=== PATIENT | female | born 1995 | race African-American/Black ===

== ENCOUNTER 2025-09-13 12:24 | Inpatient (IN) | payer MEDICAID, SELFPAY ==
[2025-09-13 12:58] VITALS: BP 112/68; PULSE 107; RESP 20; TEMP 37.3; O2SAT 98; BMI 37.9
--- NOTE | 2025-09-13 13:14 | XR_ITS ---
EXAMINATION: US OB >= 14 weeks Fetus, US OB <= 14 weeks fetus ORDERING PROVIDER: YOHAN Farfan HISTORY: pelvic pain TECHNIQUE: Multiplanar still ultrasonography of the pelvis was performed using grayscale imaging, supplemented by color and spectral Doppler as needed. Images were performed transabdominally. COMPARISON: None. FINDINGS: Single live intrauterine , cephalic, spine to maternal right. 162 bpm. Placenta posterior. Limited anatomy evaluation for dating. Please note, this is not a full anatomy scan and does not preclude the 20-week anatomy scan. Clinical age 15 weeks 5 days Sonographic age 16 weeks 2 days Estimated weight: 143.1 g +/-21 g Right ovary 2.3 x 1.3 x 1.8 cm, with vascular flow seen. Left ovary not visualized. Lobular uterus with multiple heterogeneous rounded lesions measuring up to 6.2 cm. This includes a posterior subserosal pedunculated lesion. Amniotic fluid index 10.3 cm. No free fluid in the cul-de-sac. IMPRESSION: 1. Single live intrauterine with concordant sonographic and clinical dates. 2. Multifibroid uterus.
--- NOTE | 2025-09-13 13:15 | PD.EDRME ---
Rapid Medical Screening Exam [facility] Arrival date/time: 09/13/25 12:24 30-year-old female with no known medical history presents to the emergency room with a chief complaint of lower lumbar back pain and lower bilateral abdominal pain x 1 week. Patient is currently 16 weeks . I have greeted and performed a focused initial assessment of this patient. A comprehensive ED assessment and evaluation of the patient, analysis of all test results, and completion of the medical decision making process will be conducted by additional ED providers. Chief Complaint: Abdominal Pain Time Seen by Provider: 09/13/25 12:59 Vital signs: Vital Signs Temperature 99.2 F 09/13/25 12:58 Pulse Rate 107 H 09/13/25 12:58 Respiratory Rate 20 09/13/25 12:58 Blood Pressure 112/68 09/13/25 12:58 Pulse Oximetry (%) 98 09/13/25 12:58 Oxygen Delivery Method Room Air 09/13/25 12:58 Vital signs reviewed by provider: Yes Exam: Bilateral lower abdominal tenderness Lower lumbar back pain Clinical Impression: Threatened /UTI/ectopic /back
[2025-09-13 13:52] LABS: Alanine Aminotransferase 23 U/L (10-49); Albumin, Serum 4.5 gm/dL (3.5-5.0); Albumin/Globulin Ratio 1.3 (1.2-2.2); Alkaline Phosphatase 69 U/L (46-116); Anion Gap 10 (7-16); Aspartate Amino Transferase 20 U/L (0-34); BUN/Creatinine Ratio 8 Ratio (12-20); Bilirubin,Total 0.3 mg/dL (0.3-1.2); Blood Urea Nitrogen < 5 mg/dL (9-23); Calcium 9.7 mg/dL (8.3-10.6); Calcium (Corrected) 9.7 mg/dL (8.5-10.1); Carbon Dioxide 23.2 mMol/L (20.0-31.0); Chloride 103 mMol/L (98-107); Creatinine (Component) 0.6 mg/dL (0.6-1.3); Estimated Creatinine Clearance 175.2 mL/min (>60); Globulin 3.5 gm/dL (2.3-3.5); Glucose 94 mg/dL (74-106); Osmolality,Calculated 269 (275-295); Potassium 4.4 mMol/L (3.4-5.1); Sodium 136 mMol/L (136-145); Total Protein 8.0 gm/dL (5.7-8.2); eGFR > 60 See Note
[2025-09-13] MEDS: ACETAMINOPHEN 500 MG TABLET 1000 MG PO (14:50)
[2025-09-13 14:55] LABS: Collection Type, Urine Clean Catch
[2025-09-13 15:07] LABS: Bacteria,Urine Rare; Bilirubin,Urine Negative (Negative); Blood,Urine Negative (Negative); Color,Urine Yellow (Lt Yel-Yel); Glucose, Urine Negative (Negative); Ketones,Urine 3+ (Negative); Leukocyte Esterase,Urine Positive (Negative); Nitrite,Urine Negative (Negative); PH,Urine 6.0 (5.0-7.0); Protein,Urine Negative (Neg - Trace); RBC,Urine 2 /hpf (0-3); Specific Gravity,Urine 1.019 (1.001-1.035); Squamous Epithelial Cell,Urine 8 /hpf (0-5); Urobilinogen,Urine Negative mg/dL (0.0-1.0); WBC,Urine 7 /hpf (0-5)
[2025-09-13 15:10] LABS: Clarity,Urine Hazy (Clear/Hazy)
[2025-09-13 15:16] LABS: Basophils # (Auto) 0.0 Thou/mm3 (0.0-0.2); Basophils % (Auto) 0 % (0-2.5); Eosinophils # (Auto) 0.1 Thou/mm3 (0.0-0.5); Eosinophils % (Auto) 0 % (0-10); Hematocrit 38.3 % (36.0-46.0); Hemoglobin 13.1 g/dL (12.0-16.0); Immature Granulocytes Auto 0.09 Thou/mm3 (0.00-0.00); Lymphocytes # (Auto) 2.4 Thou/mm3 (1.0-4.8); Lymphocytes % (Auto) 14 % (10-50); Mean Corpuscular HGB Conc 34.2 g/dl (31.0-37.0); Mean Corpuscular Hemoglobin 29.9 pg (25.0-35.0); Mean Corpuscular Volume 87 fL (80-100); Monocytes # (Auto) 1.1 Thou/mm3 (0.0-0.8); Monocytes % (Auto) 7 % (0-12); Neutrophils # (Auto) 13.8 Thou/mm3 (1.8-7.7); Neutrophils % (Auto) 79 % (37-80); Nucleated Red Blood Cell # 0.00 Thou/mm3 (0.00-0.00); Nucleated Red Blood Cell % 0 /100 WBC (0); Platelet Count 277 Thou/mm3 (140-440); RDW Standard Deviation 44.2 fL (36.4-46.3); Red Blood Count 4.38 Miln/mm3 (4.00-5.20); White Blood Count 17.6 Thou/mm3 (3.6-11.0)
--- NOTE | 2025-09-13 16:25 | PD.EDABDPN ---
ED Abdominal Pain RME/HPI General Chief Complaint: Abdominal Pain Stated complaint: LOWER ABD/BACK PAIN Time seen by provider: 09/13/25 12:59 Arrival date/time: 09/13/25 12:24 RME / HPI RME / HPI narrative: 09/13/25 12:24 30-year-old female with no known medical history presents to the emergency room with a chief complaint of lower lumbar back pain and lower bilateral abdominal pain x 1 week. Patient is currently 16 weeks . I have greeted and performed a focused initial assessment of this patient. A comprehensive ED assessment and evaluation of the patient, analysis of all test results, and completion of the medical decision making process will be conducted by additional ED providers. Exam: Bilateral lower abdominal tenderness Lower lumbar back pain Impression: Threatened /UTI/ectopic /back Related Data Allergies Allergy/AdvReac Type Severity Reaction Status Date / Time No Known Allergies Allergy Verified 09/13/25 12:28 Course Orders Category Date Time Status US OB >= 14 weeks Fetus Stat Exams 09/13/25 13:14 Completed ABO/RH Type Stat Lab 09/13/25 13:20 Completed Beta HCG,Quantitative Stat Lab 09/13/25 13:20 Results CBC Stat Lab 09/13/25 13:20 Completed CMP [Comprehensive Metabolic Panel] Stat Lab 09/13/25 13:20 Results Lipase Stat Lab 09/13/25 13:20 Results UA [Urinalysis] Stat Lab 09/13/25 14:41 Completed Acetaminophen Tab [Tylenol ES Tab] Med 09/13/25 13:16 Discontinued 1,000 mg PO X1 ONE Vital Signs Vital signs: Vital Signs Temperature 99.2 F 09/13/25 12:58 Pulse Rate 107 H 09/13/25 12:58 Respiratory Rate 20 09/13/25 12:58 Blood Pressure 112/68 09/13/25 12:58 Pulse Oximetry (%) 98 09/13/25 12:58 Oxygen Delivery Method Room Air 09/13/25 12:58 Abdominal Pain MDM MDM Narrative MDM Narrative:: Labs with leukocytosis 17.6 no left shift Medications / Prescriptions Medication administrations:: Medication Administration History Discontinued Medications Acetaminophen (Acetaminophen 500 Mg Tablet) 1,000 mg PO X1 ONE Stop: 09/13/25 13:17 Last Admin: 09/13/25 14:50 Dose: 1,000 mg Documented By: TRACY Discharge Plan Prescriptions/Referrals Referrals: Brian Negrete MD [Primary Care Provider, Family Practice] - In 1 week Patient/Caregiver Discharge Instructions Print Language: Setswana
--- NOTE | 2025-09-13 16:26 | EDNOTE_ITS ---
ED Abdominal Pain RME/HPI General Chief Complaint: Abdominal Pain Stated complaint: LOWER ABD/BACK PAIN Time seen by provider: 09/13/25 12:59 Arrival date/time: 09/13/25 12:24 Limitations: no limitations RME / HPI RME / HPI narrative: 09/13/25 12:24 30-year-old female with no known medical history presents to the emergency room with a chief complaint of lower lumbar back pain and lower bilateral abdominal pain x 1 week. Patient is currently 16 weeks . I have greeted and performed a focused initial assessment of this patient. A comprehensive ED assessment and evaluation of the patient, analysis of all test results, and completion of the medical decision making process will be conducted by additional ED providers. DR. RAYMON MAYEN ED EVALUATION 30 year old female who is approximately 16 weeks gestational age, , presents to the ED for evaluation of left flank pain that radiates around to the left lower abdomen beginning 5 days ago. Pain described as colicky in sensation, rating as severe. Has noted pain to be worse during the night and while laying on the left side. Reportedly has also been evaluated at [facility] due to pain and urinary symptoms when the pain first began and diagnosed with a UTI. States she was given a dose of antibiotics while in the emergency room and discharged home with Cephalexin. States she has taken 3 days of antibiotics with 5-6 days left and no change in symptoms. Denies any contraction type pain, vomiting, fevers, chills, or vaginal bleeding. Exam: Bilateral lower abdominal tenderness Lower lumbar back pain Impression: Threatened /UTI/ectopic /back Related Data Previous Rx's ?Medication ?Instructions ?Recorded amoxicillin 875 mg-potassium 1 tab PO BID 7 days #14 t abs 09/15/25 clavulanate 125 mg tablet Allergies Allergy/AdvReac Type Severity Reaction Status Date / Time No Known Allergies Allergy Verified 09/13/25 12:28 Review of Systems Review of Systems Systems Reviewed: All systems reviewed, normal except as documented Past Medical History Social History SMOKING STATUS: Never smoker ED Exam General Limitations: Present no limitations General appearance: Present alert and in no apparent distress Head Head exam: Present atraumatic Eye Eye exam: Present normal appearance, PERRL and EOMI ENT ENT exam: Present normal exam, normal oropharynx and mucous membranes moist Neck Neck exam: Present normal inspection, full ROM and trachea midline Chest Chest inspection: Present normal inspection and symmetric chest wall rise Respiratory Respiratory exam: Present normal lung sounds bilaterally Cardiovascular Cardiovascular exam: Present regular rate, normal rhythm and normal heart sounds Abdominal Exam Abdominal exam: Present soft and normal bowel sounds; Absent tenderness, guarding or rebound Extremities Exam Extremities exam: Present normal inspection and full ROM Back Exam Back exam: Present full ROM and other (Left flank tenderness to palpation ) Neurological Exam Neurological exam: Present alert, oriented X3 and CN II-XII intact Psychiatric Psychiatric exam: Present normal affect and normal mood Skin Skin exam: Present warm, dry, intact and normal color Course Quality Measures none Orders Category Date Time Status Patient Condition Routine Admission 09/13/25 17:16 Ordered Activity as Tolerated Routine Care 09/13/25 17:16 Ordered heart tone auscultation Q4H Care 09/13/25 17:16 Completed Insert IV NOW Care 09/13/25 17:16 Completed Notify provider NEEDED Care 09/13/25 17:16 Completed Obtain weight daily Care 09/13/25 17:16 Completed Sequential Compression Device QSHIFT Care 09/13/25 17:16 Completed Diet Regular Diet 09/13/25 Dinner Active US OB >= 14 weeks Fetus Stat Exams 09/13/25 13:14 Completed US renal BI Stat Exams 09/13/25 17:05 Completed ABO/RH Type Stat Lab 09/13/25 13:20 Completed Beta HCG,Quantitative Stat Lab 09/13/25 13:20 Completed Blood Culture (Lab) Stat Lab 09/13/25 17:40 Completed CBC AM DRAW Lab 09/14/25 04:35 Completed CBC Stat Lab 09/13/25 13:20 Completed CMP [Comprehensive Metabolic Panel] Stat Lab 09/13/25 13:20 Completed Lipase Stat Lab 09/13/25 13:20 Completed UA [Urinalysis] Stat Lab 09/13/25 14:41 Completed Urine Culture Routine Lab 09/13/25 22:40 Completed Acetaminophen Tab [Tylenol ES Tab] Med 09/13/25 13:16 Discontinued 1,000 mg PO X1 ONE Acetaminophen Tab [Tylenol ES Tab] Med 09/13/25 17:16 Discontinued 500 mg PO Q6HR PRN Ampicillin/Sulbac Inj [Unasyn Inj] 3 gm Med 09/13/25 18:00 Discontinued Sodium Chloride 0.9% (Pop) [NS 0.9% mini bag] 100 ml IV Q6HR Dextrose 5%-0.45% Ns [D5-1/2Ns] 1,000 ml Med 09/13/25 17:30 Discontinued IV 100 mls/hr Ondansetron Inj [Zofran Inj] Med 09/13/25 17:16 Discontinued 4 mg IV Q6HR PRN Ringers Lactated 1000 ml [Lactated Ringers] 1,000 ml Med 09/13/25 17:10 Discontinued IV 999 mls/hr cefTRIAXone/D5w 1gm IV premix [Rocephin/D5w 1gm IV Med 09/13/25 17:05 Discontinued premix] 1 gm in 50 ml IV STAT fentaNYL INJ [Sublimaze Inj] Med 09/13/25 17:10 Discontinued 25 mcg IVP X1 ONE Code Status Routine Oth 09/13/25 17:16 Completed Vital Signs Vital signs: Vital Signs Temperature 99.2 F 09/13/25 12:58 Pulse Rate 107 H 09/13/25 12:58 Respiratory Rate 20 09/13/25 12:58 Blood Pressure 112/68 09/13/25 12:58 Pulse Oximetry (%) 98 09/13/25 12:58 Oxygen Delivery Method Room Air 09/13/25 12:58 Pulse ox is 98% on room air which is adequate. Abdominal Pain MDM MDM Narrative MDM Narrative:: Patient presents with flank pain while . Concern for pyelonephritis, UTI. Patient not septic. ordered labs, u/s and offered meds for symptom relief. Labs with evidence of leukocytosis 17.6, no left shift. No acute metabolic disturbance, patient has a beta-hCG of 57,000. I do not have a prior for comparison. Patient with urinalysis that is hazy, negative for nitrates, positive for leuk esterase, 2 RBCs, 7 WBCs rare bacteria. Urine likely does not appear infected secondary to the fact the patient has been on Keflex for at least 3 days. Patient continues to have significant left flank pain that been getting worse concern that patient has pyelonephritis. 1705p: I spoke with OBGYN Dr. Camacho. Discussed patients PMHx, HPI, ED course, exam findings, labs, and radiology results. He accepts the patient for admissi on. Updated patient, she is in agreement. Patient data External records reviewed:: [facility] previous records Clinical information provided by:: patient Social determinants that could affect healthcare access:: none Patient has the following chronic illnesses:: No chronic medical hx reported How is presenting disease/condition affected by chronic disease/condition?: uneffected by Evaluation data The following diagnostics were reviewed and interpreted by me:: lab results and radiology exam(s) Lab and/or radiology exams considered but not ordered:: None Interpretation Summary: Ordering Physician: David Ellsworth Date of Service: 09/13/25 Procedure(s): US OB >= 14 weeks Fetus Accession Number(s): [id number] cc: Sebastián Maher MD; David Ellsworth; Brian Negrete MD~ EXAMINATION: US OB >= 14 weeks Fetus, US OB <= 14 weeks fetus ORDERING PROVIDER: YOHAN Farfan HISTORY: pelvic pain TECHNIQUE: Multiplanar still ultrasonography of the pelvis was performed using grayscale imaging, supplemented by color and spectral Doppler as needed. Images were performed transabdominally. COMPARISON: None. FINDINGS: Single live intrauterine , cephalic, spine to maternal right. 162 bpm. Placenta posterior. Limited anatomy evaluation for dating. Please note, this is not a full anatomy scan and does not preclude the 20-week anatomy scan. Clinical age 15 weeks 5 days Sonographic age 16 weeks 2 days Estimated weight: 143.1 g +/-21 g Right ovary 2.3 x 1.3 x 1.8 cm, with vascular flow seen. Left ovary not visualized. Lobular uterus with multiple heterogeneous rounded lesions measuring up to 6.2 cm. This includes a posterior subserosal pedunculated lesion. Amniotic fluid index 10.3 cm. No free fluid in the cul-de-sac. IMPRESSION: 1. Single live intrauterine with concordant sonographic and clinical dates. 2. Multifibroid uterus. Dictated By: Sebastián Maher MD Signed By: <Electronically signed by Sebastián Maher MD in OV> 09/13/25 [id number] Medications / Prescriptions Medications or Prescriptions considered but not ordered:: None Medication administrations:: Medication Administration History Discontinued Medications Acetaminophen (Acetaminophen 500 Mg Tablet) 1,000 mg PO X1 ONE Stop: 09/13/25 13:17 Last Admin: 09/13/25 14:50 Dose: 1,000 mg Documented By: DB Acetaminophen (Acetaminophen 500 Mg Tablet) 500 mg PO Q6HR PRN PRN Reason: Fever >101.5 Stop: 10/13/25 17:15 Hydrocodone Bitart/Acetaminophen (Hydrocodone/Apap 5/325 Tablet) 1 tab PO Q4HR PRN PRN Reason: PAIN SCALE 4-6 (Moderate Stop: 09/18/25 22:13 Last Admin: 09/13/25 22:38 Dose: 1 tab Documented By: MANJU Hydrocodone Bitart/Acetaminophen (Hydrocodone/Apap 10/325 Tab) 1 tab PO Q6HR PRN PRN Reason: PAIN SCALE 7-10 (Severe Stop: 09/18/25 22:13 Last Admin: 09/15/25 12:26 Dose: 1 tab Documented By: Admin: 09/15/25 05:05 Dose: 1 tab Documented By: Admin: 09/14/25 22:31 Dose: 1 tab Documented By: Admin: 09/14/25 16:32 Dose: 1 tab Documented By: [email or web address] Admin: 09/14/25 09:49 Dose: 1 tab Documented By: [email or web address] Admin: 09/14/25 03:49 Dose: 1 tab Documented By: MANJU Fentanyl Citrate (Fentanyl Cit Inj 50 Mcg/Ml Amp 2ml) 25 mcg IVP X1 ONE Stop: 09/13/25 17:11 Last Admin: 09/13/25 17:21 Dose: 25 mcg Documented By: KYUNG Ceftriaxone Sodium/Dextrose (Rocephin/D5w 1gm Iv Premix) 1 gm in 50 mls @ 100 mls/hr IV STAT STA Stop: 09/13/25 17:34 Last Infusion: 09/13/25 17:52 Dose: Infused Documented By: Admin: 09/13/25 17:22 Dose: 100 mls/hr Documented By: KYUNG Lactated Ringer's (Lactated Ringers) 1,000 mls @ 999 mls/hr IV .Q1H1M ONE Stop: 09/13/25 18:10 Last Admin: 09/13/25 17:47 Dose: Not Given Documented By: KYUNG Non-Admin Reason: Cancelled by Provider Dextrose/Sodium Chloride (D5-1/2ns) 1,000 mls @ 100 mls/hr IV .Q10H KIMBER Stop: 10/13/25 17:29 Last Admin: 09/15/25 02:57 Dose: 100 mls/hr Documented By: Infusion: 09/15/25 00:35 Dose: Infused Documented By: Admin: 09/14/25 14:35 Dose: 100 mls/hr Documented By: [email or web address] Admin: 09/14/25 09:43 Dose: Not Given Documented By: ps Non-Admin Reason: previous shift Infusion: 09/14/25 03:49 Dose: Infused Documented By: ps Admin: 09/13/25 17:49 Dose: 100 mls/hr Documented By: KYUNG Ampicillin Sodium/Sulbactam (Sodium 3 gm/ Sodium Chloride) 100 mls @ 200 mls/hr IV Q6HR KIMBER Stop: 09/20/25 17:59 Last Admin: 09/15/25 12:26 Dose: 200 mls/hr Documented By: Infusion: 09/15/25 05:37 Dose: Infused Documented By: Admin: 09/15/25 05:07 Dose: 200 mls/hr Documented By: Infusion: 09/15/25 00:51 Dose: Infused Documented By: Admin: 09/15/25 00:21 Dose: 200 mls/hr Documented By: Infusion: 09/14/25 18:12 Dose: Infused Documented By: Admin: 09/14/25 17:42 Dose: 200 mls/hr Documented By: [email or web address] Infusion: 09/14/25 12:39 Dose: Infused Documented By: ps Admin: 09/14/25 12:09 Dose: 200 mls/hr Documented By: ps Infusion: 09/14/25 06:51 Dose: Infused Documented By: ps Admin: 09/14/25 06:21 Dose: 200 mls/hr Documented By: Infusion: 09/14/25 01:05 Dose: Infused Documented By: Admin: 09/14/25 00:35 Dose: 200 mls/hr Documented By: Infusion: 09/13/25 20:42 Dose: Infused Documented By: Admin: 09/13/25 19:20 Dose: 200 mls/hr Documented By: DIAZ Ondansetron HCl (Ondansetron Inj 2 Mg/Ml Inj 2 Ml) 4 mg IV Q6HR PRN PRN Reason: NAUSEA OR VOMITING Stop: 10/13/25 17:15 Last Admin: 09/15/25 05:07 Dose: 4 mg Documented By: Admin: 09/14/25 09:49 Dose: 4 mg Documented By: [email or web address] Admin: 09/13/25 17:24 Dose: 4 mg Documented By: KYUNG See above Consultations Consultation(s) initiated? (list below): Yes Consultation #1 (Physician, Specialty, Details): See MDM Diagnosis Differential diagnosis abdominal pain: abdominal pain, calculus of kidney and other (pyelonephritis ) Most likely diagnosis given after review of the tests above:: See MDM Admission Indicated Admission indicated?: indicated Admission Request Was there a request for admission?: Yes Admission Attestation Admission request attestation: Discussed case with [] from Hospitalist service regarding admission. Discussed patients ED course, exam findings, labs, and radiology results. The Hospitalist [agrees,declines] to accept the patient for admission. Disposition Plan Disposition Plan: Admit Discharge Plan Plan Patient Disposition: Admit Acute Care w/in Hospital Patient condition on transfer: Stable Problem List Clinical Impression: Pyelonephritis, Acute flank pain, Leukocytosis, , Fibroid uterus Patient/Caregiver Discharge Instructions Discharge Activity: activity as tolerated
[2025-09-13 16:28] LABS: Lipase 26 U/L (12-53)
--- NOTE | 2025-09-13 17:05 | XR_ITS ---
Examination: Retroperitoneal ultrasound, complete Technique: Multiple high resolution grayscale images of the retroperitoneum obtained, including kidneys and bladder. Exam date and time: September 13, 2025, 1839 hours INDICATIONS: Left flank pain radiating to the back beginning 1 week ago FINDINGS: Right kidney 9.7 cm renal cortex 1.5 cm Left kidney 12.3 cm renal cortex 2.3 cm No hydronephrosis or renal calculi Mild renal scarring Contracted urinary bladder IMPRESSION: No hydronephrosis or renal calculi torsion
[2025-09-13 17:06] VITALS: BP 114/82; PULSE 105; RESP 18; TEMP 36.9; O2SAT 99
--- NOTE | 2025-09-13 17:18 | PD.LDANTE ---
Documentation for date of: 09/13/25 OB Labor/Induct. HPI History of Present Illness Chief complaint: Pyelonephritis second trimester History of present illness: Patient is a 30-year-old Slovenian-speaking 2 para 1 female at approximately 16 weeks gestation who is presenting to the emergency room with right flank pain that radiates to her upper back. Patient reports significant dysuria and chills. Patient has visited multiple emergency rooms in the last week where she has been treated for UTI but she feels that her symptoms have been getting progressively worse. She denies any obstetric complaints, specifically she denies any cramping or vaginal bleeding and reports no nausea or vomiting or any other associated symptoms. Ultrasound today shows single live intrauterine , cephalic, spine to maternal right. 162 bpm. Placenta posterior. Limited anatomy evaluation for dating. Please note, this is not a full anatomy scan and does not preclude the 20-week anatomy scan. Clinical age 15 weeks 5 days Sonographic age 16 weeks 2 days Estimated weight: 143.1 g +/-21 g Right ovary 2.3 x 1.3 x 1.8 cm, with vascular flow seen. Left ovary not visualized. Lobular uterus with multiple heterogeneous rounded lesions measuring up to 6.2 cm. This includes a posterior subserosal pedunculated lesion. Amniotic fluid index 10.3 cm. No free fluid in the cul-de-sac. Meds Home Medications and Allergies Allergies Allergy/AdvReac Type Severity Reaction Status Date / Time No Known Allergies Allergy Verified 09/13/25 12:28 OB Exam Physical Exam Vital signs: Temp Pulse Resp BP Pulse Ox O2 Del Method 98.5 F 105 H 18 114/82 99 Room Air 09/13/25 17:06 09/13/25 17:06 09/13/25 17:06 09/13/25 17:06 09/13/25 17:06 09/13/25 17:06 Constitutional Constitutional: no acute distress Routine HEENT Exam Head: Present normocephalic and atraumatic Eye: Present EOMI and PERRL ENT: Present mucous membranes moist Routine Neck Exam Neck: Present supple and trachea midline Routine Cardiovascular Exam Cardiovascular: Present RRR Routine Abdominal Exam Abdominal: Present soft and normoactive bowel sounds Comments: Costovertebral angle tenderness present Routine Extremities Exam Extremities: Present full ROM Routine Skin Exam Skin: Present intact, dry and warm Routine Neurological Exam Neurological: Present alert, oriented X3 and CN II-XII intact Routine Psychiatric Exam Psychiatric: Present normal affect and normal thought process OB Results Labs 09/13/25 13:20 09/13/25 13:20 Labs: Short CBC 09/13/25 Range/Units 13:20 WBC 17.6 H (3.6-11.0) Thou/mm3 Hgb 13.1 (12.0-16.0) g/dL Hct 38.3 (36.0-46.0) % Plt Count 277 (140-440) Thou/mm3 BMP 09/13/25 13:20 Sodium 136 Potassium 4.4 Chloride 103 Carbon Dioxide 23.2 BUN < 5 L Creatinine 0.6 Glucose 94 Calcium 9.7 Liver Function 09/13/25 Range/Units 13:20 Total Bilirubin 0.3 (0.3-1.2) mg/dL AST 20 (0-34) U/L ALT 23 (10-49) U/L Alkaline Phosphatase 69 (46-116) U/L Albumin 4.5 (3.5-5.0) gm/dL Urine 09/13/25 Range/Units 14:41 Urine Color Yellow (Lt Yel-Yel) Urine Clarity Hazy (Clear/Hazy) Urine pH 6.0 (5.0-7.0) Ur Specific [place] 1.019 (1.001-1.035) Urine Protein Negative (Neg - Trace) Urine Glucose (UA) Negative (Negative) OB Assessment & Plan Assessment and Plan (1) Pyelonephritis affecting : Status: Acute Assessment and plan: 30-year-old G2, P1 at 16 weeks with suspected pyelonephritis in Differential diagnosis would also include fibroid degeneration as the patient has multiple fibroids of uterus with the largest measuring about 6 cm in size Plan to admit for IV antibiotics and pain management. Patient receives care elsewhere. Kidney ultrasound pending Further management depending on clinical course. (2) Fibroid uterus: Status: Acute
[2025-09-13] MEDS: fentaNYL CIT INJ 50 mCg/ML AMP 2ML 25 MCG IVP (17:21)
[2025-09-13] MEDS: cefTRIAXone/D5w 1gm IV premix 1 GM/50 ML BAG IV (17:22)
[2025-09-13] MEDS: ONDANSETRON INJ 2 MG/ML INJ 2 ML 4 MG IV (17:24)
[2025-09-13] MEDS: DEXTROSE 5%-0.45% NS 1,000 ML 100 ML IV (17:49)
[2025-09-13] MEDS: AMPICILLIN/SULBAC INJ 3 GM in SODIUM CHLORIDE 0.9% (POP) 100 ML IV (19:20)
[2025-09-13 19:23] VITALS: BP 114/82; PULSE 99; RESP 18; TEMP 37.1; O2SAT 98
[2025-09-13 21:20] VITALS: BP 129/74; PULSE 78; RESP 18; TEMP 36.9; O2SAT 98; BMI 38.3
--- NOTE | 2025-09-13 22:32 | PC.NURSE ---
rn called [facility] and notified re order of fht q4hrs.
[2025-09-13] MEDS: HYDROcodone/APAP 5/325 TABLET 1 TAB PO (22:38)
[2025-09-14] VITALS: BP 113/76; PULSE 97; RESP 17; TEMP 36.6; O2SAT 99
[2025-09-14] MEDS: AMPICILLIN/SULBAC INJ 3 GM in SODIUM CHLORIDE 0.9% (POP) 100 ML IV ×4 (00:35→17:42)
[2025-09-14 04:00] VITALS: BP 122/80; PULSE 115; RESP 18; TEMP 36.5; O2SAT 99
[2025-09-14 05:51] LABS: Basophils # (Auto) 0.0 Thou/mm3 (0.0-0.2); Basophils % (Auto) 0 % (0-2.5); Eosinophils # (Auto) 0.1 Thou/mm3 (0.0-0.5); Eosinophils % (Auto) 1 % (0-10); Hematocrit 34.5 % (36.0-46.0); Hemoglobin 11.8 g/dL (12.0-16.0); Immature Granulocytes Auto 0.10 Thou/mm3 (0.00-0.00); Lymphocytes # (Auto) 2.8 Thou/mm3 (1.0-4.8); Lymphocytes % (Auto) 18 % (10-50); Mean Corpuscular HGB Conc 34.2 g/dl (31.0-37.0); Mean Corpuscular Hemoglobin 29.8 pg (25.0-35.0); Mean Corpuscular Volume 87 fL (80-100); Monocytes # (Auto) 1.2 Thou/mm3 (0.0-0.8); Monocytes % (Auto) 8 % (0-12); Neutrophils # (Auto) 11.6 Thou/mm3 (1.8-7.7); Neutrophils % (Auto) 73 % (37-80); Nucleated Red Blood Cell # 0.00 Thou/mm3 (0.00-0.00); Nucleated Red Blood Cell % 0 /100 WBC (0); Platelet Count 255 Thou/mm3 (140-440); RDW Standard Deviation 43.4 fL (36.4-46.3); Red Blood Count 3.96 Miln/mm3 (4.00-5.20); White Blood Count 15.9 Thou/mm3 (3.6-11.0)
[2025-09-14 07:59] VITALS: BP 99/68; PULSE 96; RESP 16; TEMP 36.5; O2SAT 98
[2025-09-14] MEDS: ONDANSETRON INJ 2 MG/ML INJ 2 ML 4 MG IV (09:49)
--- NOTE | 2025-09-14 10:52 | PD.LDANTPROG ---
Subjective Subjective Interval history: Patient is a 30-year-old English-speaking 2 para 1 female at approximately 16 weeks gestation who is presenting to the emergency room with right flank pain that radiates to her upper back. Patient reports significant dysuria and chills. Patient has visited multiple emergency rooms in the last week where she has been treated for UTI but she feels that her symptoms have been getting progressively worse. She denies any obstetric complaints, specifically she denies any cramping or vaginal bleeding and reports no nausea or vomiting or any other associated symptoms. Ultrasound today shows single live intrauterine , cephalic, spine to maternal right. 162 bpm. Placenta posterior. Limited anatomy evaluation for dating. Please note, this is not a full anatomy scan and does not preclude the 20-week anatomy scan. Clinical age 15 weeks 5 days Sonographic age 16 weeks 2 days Estimated weight: 143.1 g +/-21 g Right ovary 2.3 x 1.3 x 1.8 cm, with vascular flow seen. Left ovary not visualized. Lobular uterus with multiple heterogeneous rounded lesions measuring up to 6.2 cm. This includes a posterior subserosal pedunculated lesion. Amniotic fluid index 10.3 cm. No free fluid in the cul-de-sac. This morning the patient is resting in bed. She reports some back pain relieved with [place]. She might have a history of kidney stones in the past. She has actually had a history of gallstones and had her gallbladder removed. She sees Dr. Reyes for care. She was unaware that she had fibroids. We did discuss fibroids and the fact they sometimes grow in sometimes they actually degenerate in and cause pain. The patient's pain and presentation is more suspicious for an early pyelonephritis with possible kidney stone. Her renal ultrasound is normal. She is on Rocephin currently. I told the patient she will most likely go home on an antibiotic. We will probably try to send her home tomorrow if she is stable. She has been afebrile. Her urine culture is still pending. Exam Vital Signs Temp Pulse Resp BP Pulse Ox O2 Del Method 97.7 F 96 16 99/68 98 Room Air 09/14/25 07:59 09/14/25 07:59 09/14/25 07:59 09/14/25 07:59 09/14/25 07:59 09/14/25 07:59 Narrative Exam Patient is alert and orient x 3 in no apparent distress Routine Abdominal Exam Abdominal: Present soft Comments: Fundus firm nontender Urinary Catheter Management Cath placed during this visit: no Assessment & Plan Problems (1) Pyelonephritis affecting : Problem details: Check heart tones daily. Continue Rocephin. Probable home on Keflex if the bacteria is sensitive. Status: Acute (2) Fibroid uterus: Problem details: We did discuss more ultrasounds during to measure growth of the baby and the size of the fibroids and baby. Status: Acute Time Spent With Patient Time with patient: less than 15 minutes Objective Labs 09/14/25 04:35 09/13/25 13:20 Labs: Laboratory Results - last 24 hr 09/13/25 09/13/25 09/14/25 13:20 14:41 04:35 WBC 17.6 H 15.9 H RBC 4.38 3.96 L Hgb 13.1 11.8 L Hct 38.3 34.5 L MCV 87 87 MCH 29.9 29.8 MCHC 34.2 34.2 RDW Std Deviation 44.2 43.4 Plt Count 277 255 Neut % (Auto) 79 73 Lymph % (Auto) 14 18 Bradley % (Auto) 7 8 Eos % (Auto) 0 1 Baso % (Auto) 0 0 Neut # (Auto) 13.8 H 11.6 H Lymph # (Auto) 2.4 2.8 Bradley # (Auto) 1.1 H 1.2 H Eos # (Auto) 0.1 0.1 Baso # (Auto) 0.0 0.0 Immature Gran # (Auto) 0.09 H 0.10 H Absolute Nucleated RBC 0.00 0.00 Immature Gran % 1 H 1 H Nucleated RBC % 0 0 Sodium 136 Potassium 4.4 Chloride 103 Carbon Dioxide 23.2 Anion Gap 10 BUN < 5 L Creatinine 0.6 Estim Creat Clear Calc 175.2 eGFR > 60 BUN/Creatinine Ratio 8 L Glucose 94 Calculated Osmolality 269 L Calcium 9.7 Corrected Calcium 9.7 Total Bilirubin 0.3 AST 20 ALT 23 Alkaline Phosphatase 69 Total Protein 8.0 Albumin 4.5 Globulin 3.5 Albumin/Globulin Ratio 1.3 Lipase 26 Beta HCG, Quant 71800 Ur Collection Type Clean Catch Urine Color Yellow Urine Clarity Hazy Urine pH 6.0 Ur Specific [place] 1.019 Urine Protein Negative Urine Glucose (UA) Negative Urine Ketones 3+ A Urine Blood Negative Urine Nitrite Negative Urine Bilirubin Negative Urine Urobilinogen (Auto) Negative Ur Leukocyte Esterase Positive Urine RBC 2 Urine WBC 7 H Ur Squamous Epith Cells 8 H Urine Bacteria Rare Blood Type A Positive Blood Bank Wristband ID Yes
[2025-09-14 11:44] VITALS: BP 105/55; PULSE 103; RESP 16; TEMP 36.4; O2SAT 96
[2025-09-14] MEDS: DEXTROSE 5%-0.45% NS 1,000 ML 100 ML IV (14:35)
[2025-09-14 15:46] VITALS: BP 128/71; PULSE 97; RESP 16; TEMP 36.1; O2SAT 100
[2025-09-14 20:00] VITALS: BP 103/62; PULSE 93; RESP 18; TEMP 36.2; O2SAT 99
[2025-09-15] VITALS: BP 105/56; PULSE 98; RESP 17; TEMP 36.7; O2SAT 98
[2025-09-15] MEDS: AMPICILLIN/SULBAC INJ 3 GM in SODIUM CHLORIDE 0.9% (POP) 100 ML IV ×3 (00:21→12:26)
[2025-09-15] MEDS: DEXTROSE 5%-0.45% NS 1,000 ML 100 ML IV (02:57)
[2025-09-15 04:00] VITALS: BP 123/79; PULSE 104; RESP 16; TEMP 36.6; O2SAT 98
[2025-09-15] MEDS: ONDANSETRON INJ 2 MG/ML INJ 2 ML 4 MG IV (05:07)
--- NOTE | 2025-09-15 05:22 | PC.NURSE ---
called Dr. Tony rubio patient c/o 07/29 pain in her back and abdomen area, patient given PRN [place] 10/325 PO, patient states medication does work for her pain but is asking why she is in pain, explained to patient POC, disease process of her pyelonephritis, why she's having the pain, she is worried that she is taking pain medication while . No new orders received.
[2025-09-15 07:32] VITALS: BP 105/50; PULSE 70; RESP 16; TEMP 36.6; O2SAT 98
[2025-09-15 07:42] LABS: Basophils # (Auto) 0.0 Thou/mm3 (0.0-0.2); Basophils % (Auto) 0 % (0-2.5); Eosinophils # (Auto) 0.1 Thou/mm3 (0.0-0.5); Eosinophils % (Auto) 1 % (0-10); Hematocrit 34.1 % (36.0-46.0); Hemoglobin 11.3 g/dL (12.0-16.0); Immature Granulocytes Auto 0.05 Thou/mm3 (0.00-0.00); Lymphocytes # (Auto) 2.2 Thou/mm3 (1.0-4.8); Lymphocytes % (Auto) 16 % (10-50); Mean Corpuscular HGB Conc 33.1 g/dl (31.0-37.0); Mean Corpuscular Hemoglobin 29.7 pg (25.0-35.0); Mean Corpuscular Volume 90 fL (80-100); Monocytes # (Auto) 0.9 Thou/mm3 (0.0-0.8); Monocytes % (Auto) 7 % (0-12); Neutrophils # (Auto) 10.7 Thou/mm3 (1.8-7.7); Neutrophils % (Auto) 76 % (37-80); Nucleated Red Blood Cell # 0.00 Thou/mm3 (0.00-0.00); Nucleated Red Blood Cell % 0 /100 WBC (0); Platelet Count 254 Thou/mm3 (140-440); RDW Standard Deviation 44.3 fL (36.4-46.3); Red Blood Count 3.80 Miln/mm3 (4.00-5.20); White Blood Count 14.1 Thou/mm3 (3.6-11.0)
--- NOTE | 2025-09-15 08:19 | PD.GYNPROG ---
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 Subjectively feeling better and has been afebrile for the last 24 hours Urine culture results are still pending. Exam Vital Signs Temp Pulse Resp BP Pulse Ox O2 Del Method 97.8 F 70 16 105/50 L 98 Room Air 09/15/25 07:32 09/15/25 07:32 09/15/25 07:32 09/15/25 07:32 09/15/25 07:32 09/15/25 07:32 Constitutional Constitutional: no acute distress Routine HEENT Exam Head: Present normocephalic and atraumatic Eye: Present EOMI and PERRL ENT: Present mucous membranes moist Routine Neck Exam Neck: Present supple and trachea midline Routine Respiratory Exam Respiratory: Present chest non-tender, lungs clear, normal breath sounds and no resp distress Routine Cardiovascular Exam Cardiovascular: Present RRR Routine Abdominal Exam Abdominal: Present soft and normoactive bowel sounds Routine Extremities Exam Extremities: Present full ROM Routine Skin Exam Skin: Present intact and dry Routine Neurological Exam Neurological: Present alert, oriented X3 and CN II-XII intact Routine Psychiatric Exam Psychiatric: Present normal affect and normal thought process Urinary Catheter Management Cath placed during this visit: no BRIDGE SAW OPERATOR - PN: Obj Data Labs 09/15/25 07:03 09/13/25 13:20 Labs: Laboratory Results - last 24 hr 09/15/25 07:03 WBC 14.1 H RBC 3.80 L Hgb 11.3 L Hct 34.1 L MCV 90 MCH 29.7 MCHC 33.1 RDW Std Deviation 44.3 Plt Count 254 Neut % (Auto) 76 Lymph % (Auto) 16 [place] % (Auto) 7 Eos % (Auto) 1 Baso % (Auto) 0 Neut # (Auto) 10.7 H Lymph # (Auto) 2.2 [place] # (Auto) 0.9 H Eos # (Auto) 0.1 Baso # (Auto) 0.0 Immature Gran # (Auto) 0.05 H Absolute Nucleated RBC 0.00 Immature Gran % 0 Nucleated RBC % 0 BRIDGE SAW OPERATOR - A/P Assessment and plan (1) Pyelonephritis affecting : Status: Acute Assessment and plan: Plan to discharge patient home today on oral antibiotics. (2) Fibroid uterus: Status: Acute Assessment and plan: In can be very likely due to fibroid degeneration. Patient was counseled that she needs to request her [facility] to be referred to maternal- medicine for detailed mapping of fibroids and delivery plan. Fibroids can interfere with vaginal delivery if they are in the lower uterine segment and she needs to be monitored very closely. Time Spent With Patient Time: Total time spent is greater than 50% in coordination of care (as documented) at patient's floor/unit and/or counseling patient: Time with patient: less than 15 minutes
--- NOTE | 2025-09-15 08:21 | PD.LDDS ---
DS: Providers Provider Date of admission: 09/13/25 20:02 Primary care physician: Brian Negrete MD Admitting Provider: Russell Camacho MD Attending Provider on Admission: Russell Camacho MD Consults: 09/13/25 23:48 [facility] Referral - Nutrition Routine Comment: Positive screening for nutrition needs. Attending Provider on DC: Russell Camacho MD Discharging Provider: Russell Camacho MD DS: Diagnosis Discharge Diagnosis (1) Pyelonephritis affecting : Status: Acute (2) Fibroid uterus: Status: Acute Problem List Completed Was Problem List Reviewed/Reconciled?: Yes Summary/Hosp Course Brief History: Patient doing well this morning. Subjectively feeling better and has been afebrile for the last 24 hours Urine culture results are still pending. Time Spent with Patient Time attestation: Total time spent providing and/or coordinating discharge services: Exam Vital Signs Temp Pulse Resp BP Pulse Ox O2 Del Method 97.8 F 70 16 105/50 L 98 Room Air 09/15/25 07:32 09/15/25 07:32 09/15/25 07:32 09/15/25 07:32 09/15/25 07:32 09/15/25 07:32 Discharge Plan Plan Patient Disposition: HOME (Self Care) Patient condition on transfer: Stable Prescriptions/Referrals Prescriptions/Med Rec: New hydrocodone-acetaminophen 5-325 mg tablet 1 tab PO Q6H MDD 4 PRN (Reason: pain) 5 Days Qty: 20 0RF amoxicillin-pot clavulanate 875-125 mg tablet 1 tab PO BID 7 Days Qty: 14 0RF Referrals: Brian Negrete MD [Primary Care Provider, Family Practice] Sebastián Reyes MD [Referring Provider] Referral Note: See your OBGYN within 1 week Patient/Caregiver Discharge Instructions Discharge Activity: activity as tolerated Education Materials: What Are Fibroids?, Urinary Tract Infections in Women Print Language: [place]ese Stand Alone Forms: Christina Award Info., Patient Portal Info Letter Planned Discharge Date 09/15/25
--- NOTE | 2025-09-15 10:01 | PC.SS ---
Patient Nic Chavarria is a 30 Year old female admitted for Pylonephritis. SS met with gennaro at bedside to discuss discharge plan and verify demographic information. Patient reports she lives at home with a roommate. Patient reports her friend, Ezequiel Judgeus is her surrogate decision maker, [phone]. Patient reports she does not utilize any source of DME to assist with ambulation. Patient is independent with all ADL's. [facility]. PCP is Brian Snell. At time of discharge patient will return back home. Friend will provide transportation. No further needs at the time. Discharge: Home Next of kin: Ezequiel Cunningham
[2025-09-15 12:00] VITALS: BP 127/76; PULSE 84; RESP 16; TEMP 36.6; O2SAT 98
--- NOTE | 2025-09-15 12:18 | PC.NURSE ---
Patient wants to eat lunch and last antibiotic and pain medications before she discharges.
== END 2025-09-15 14:39 | disposition home or self-care (01) | DRG 566 ==
LOC: SERX 17:13 → SERHOLD 20:10 → S3SX 09-14 09:48
PROVIDERS: Nurse Practitioner Family; Obstetrics & Gynecology; Admitting Provider Obstetrics & Gynecology; Emergency Provider Emergency Medicine; PCP Family Medicine; Visit Provider Obstetrics & Gynecology
DX: O23.02 Infections of kidney in pregnancy, second trimester (principal); O34.12 Maternal care for benign tumor of corpus uteri, second trimester; D25.9 Leiomyoma of uterus, unspecified; Z3A.16 16 weeks gestation of pregnancy; Z90.49 Acquired absence of other specified parts of digestive tract; Z87.442 Personal history of urinary calculi
CPT/HCPCS: 36415; 76770; 76805; 80053; 81001; 83690; 84702; 84703; 85025; 86900; 86901; 87040; 87086; 96361; 96365; 96375; 99284; J0295; J0696; J2405; J3010; J7042; A9270